=== PATIENT | female | born 1970 | race Caucasian/White ===

== ENCOUNTER 2020-12-16 06:50 | Day surgery (SDC) | payer BC ==
[~2020-12-16 06:50] MED LIST: Lactated Ringers 1,000 ML IV SCH; Sodium Chloride 0.9% 10 ML Syringe FLUSH PRN
[2020-12-16] MEDS ORDERED: Lactated Ringers 1,000 ML IV ONE (06:51)
[2020-12-16] MEDS ORDERED: Propofol 200 MG/20 ML SDV IV ONE (06:51)
[2020-12-16] MEDS ORDERED: Lidocaine 2% 5 ML SDV IV ONE (06:51)
--- NOTE | 2020-12-16 08:06 | PCM.PN ---
- General Info Date of Service: 12/16/20 - Review of Systems Systems Review Comment:: 50 y/o female with family history of colon polyps in sister here for colonoscopy. She is medically stable to proceed. Her recent H and P is reviewed and no significant changes are noted. I have discussed the proposed c olonoscopy with the patient. Risks such as but not limited to bleeding and GI injury discussed and she agrees to proceed. - Patient Data Vitals - Most Recent: Last Vital Signs Temp 98.6 F 12/16/20 07:25 Pulse 59 L 12/16/20 07:25 Resp 16 12/16/20 07:25 BP 118/71 12/16/20 07:25 Pulse Ox 100 12/16/20 07:25 Weight - Most Recent: 126 lb Lab Results Last 24 Hours: Laboratory Results - last 24 hr 12/16/20 Range/Units 07:25 Urine HCG, Qual Negative (NEGATIVE) Med Orders - Current: Current Medications Lactated Ringer's (Ringers, Lactated) 1,000 mls @ 125 mls/hr IV ASDIRECTED RICARDO Last Admin: 12/16/20 07:40 Dose: 125 mls/hr Documented by: Sodium Chloride (Sodium Chloride 0.9% 10 Ml Syringe) 10 ml FLUSH ASDIRECTED PRN PRN Reason: Keep Vein Open - Patient Data Lab Results Last 24 hrs: Laboratory Results - last 24 hr 12/16/20 Range/Units 07:25 Urine HCG, Qual Negative (NEGATIVE) Sepsis Event Note - Focused Exam Vital Signs: Vital Signs Temp Pulse Resp BP Pulse Ox 12/16/20 07:25 98.6 F 59 L 16 118/71 100 - Problem List Review Problem List Initiated/Reviewed/Updated: Yes - My Orders Last 24 Hours: My Active Orders 12/16/20 Breakfast Nothing Per Oral Diet [DIET] 12/16/20 06:45 Patient Status [ADT] Routine Patient to Empty Bladder [RC] ASDIRECTED Verify Patient Consent Obtain [RC] ASDIRECTED Lactated Ringers [Ringers, Lactated] 1,000 ml IV ASDIRECTED Sodium Chloride 0.9% [Saline Flush] 10 ml FLUSH ASDIRECTED PRN Peripheral IV Insertion Adult [OM.PC] Routine - Assessment Assessment:: Family history of colon polyps - Plan Plan:: Colonoscopy
--- NOTE | 2020-12-16 09:16 | PCM.OPNOTE ---
- General Post-Op/Procedure Note Date of Surgery/Procedure: 12/16/20 Operative Procedure(s): Colonoscopy Findings: Normal appearing colon Pre Op Diagnosis: Family history of colon polyps Post-Op Diagnosis: Normal colon Anesthesia Technique: MAC Primary Surgeon: Gabe Cordero Pathology: none EBL in mLs: 0 Complications: None Condition: Good
--- NOTE | 2020-12-16 10:24 | OR ---
DATE OF OPERATION: 12/16/2020 SURGEON: Gabe Cordero MD PREOPERATIVE DIAGNOSIS: Family history of colon polyps. POSTOPERATIVE DIAGNOSIS: Normal colon. OPERATION PERFORMED: Colonoscopy. INDICATIONS FOR SURGERY: This 50-year-old female has a known family history of colon polyps, and she comes for high-risk screening colonoscopy. FINDINGS: No polyps were seen on today's exam. The patient's colon appeared normal, although was somewhat tortuous. PROCEDURE IN DETAIL: The patient was taken to the procedure room. She was given intravenous sedation, and with her in the left lateral decubitus position, digital rectal exam was performed showing no rectal masses. The Olympus colonoscope was inserted into the rectum. Retroflexed examination of the rectal canal was performed. The scope was then carefully advanced under direct visualization through the entire length of the colon until the cecum was reached. Advancing the scope was somewhat difficult because of tortuosity of the colon, but eventually with careful persistent manipulation as well as some hand pressure, the cecum was able to be reached and thoroughly viewed. Cecal identity was confirmed by noting normal internal cecal anatomy including the appendiceal orifice and the ileocecal valve. After examining the cecum, the scope was slowly withdrawn sequentially re-examining the colonic segments until the entire colon and rectum had been fully examined. The scope was removed and the patient was taken from the procedure room in satisfactory condition. ESTIMATED BLOOD LOSS: 0. COMPLICATIONS: None. PROGNOSIS: Good. /[id number] ERNESTO/CARON
== END 2020-12-16 10:20 | disposition home or self-care (01) ==
LOC: FB.SDS 06:50
PROVIDERS: ATTEND Surgery
DX: Z12.11 Encounter for screening for malignant neoplasm of colon (principal); Z83.71 Family history of colonic polyps; Z79.899 Other long term (current) drug therapy
CPT/HCPCS: 00812; 45378; 81025; J2704; J7120